=== PATIENT | male | born 1955 | race Caucasian/White ===

== ENCOUNTER → 2021-10-23 | Outpatient (CLI) | payer MEDICARE, OTHER ==
[~2021-10-23] MED LIST: ACET-2267 PO; AMAN100C20 PO; AMLO-167 PO; ASCO500T75 PO; ATOR10TA66 PO; CEFD300C3 PO; CHOL20003 PO; CYAN-41 PO; DALFAMPRIDINE TOP; DIAZ2TAB2 PO; DOCU-143 PO; FOLI0.8T4 PO; FOLI1TAB33 PO; LORA10TA76 PO; METH2.5T PO; MONT10TA21 PO; MULT-567 PO; NAPR220T66 PO; OMG1KC PO; SILD20TA14 PO; TADA5TAB2 PO; TIZA-186 PO
== END ==
LOC: CARD 14:41
PROVIDERS: ATTEND Internal Medicine Cardiovascular Disease
DX: I08.0 Rheumatic disorders of both mitral and aortic valves (principal); I25.10 Atherosclerotic heart disease of native coronary artery without angina pectoris; I11.9 Hypertensive heart disease without heart failure
CPT/HCPCS: 93306